=== PATIENT | female | born 1990 | race Caucasian/White ===

== ENCOUNTER 2021-08-16 18:58 | Emergency (ER) | payer MEDICAID ==
[~2021-08-16] VITALS: Ht 175.3 cm; Wt 163.6 kg
[2021-08-16 19:21] VITALS: BP 173/98
[2021-08-16] MEDS ORDERED: PENI-88 PO (19:49)
[2021-08-16] MEDS ORDERED: penicillin V potassium 500mg tablet PO ONE (19:50)
== END 2021-08-16 20:07 | disposition home or self-care (01) ==
LOC: ER 19:00
DX: K08.89 Other specified disorders of teeth and supporting structures (principal); Z79.2 Long term (current) use of antibiotics
CPT/HCPCS: 99283